=== PATIENT | female | born 1965 | race Caucasian/White ===

== ENCOUNTER 2017-04-08 08:15 | Emergency (ER) | payer MEDICAID ==
[~2017-04-08 08:15] MED LIST: COL100 PO; LIPI10 PO; MOTRIN800 MG PO
[2017-04-08] MEDS ORDERED: LOVAZA1 G1 PO (09:38)
[2017-04-08] MEDS ORDERED: VITAMIN B121000 MCG PO (09:38)
[2017-04-08] MEDS ORDERED: VITAMIN D400 UNIT PO (09:38)
[2017-04-08] MEDS ORDERED: ALENDRONATE SODI5 MG PO (09:39)
[2017-04-08 10:35] LABS: PLATELET COUNT 277 x10^3mcL (130-400)
[2017-04-08 10:36] LABS: BASOPHIL % 0 % (0-2)
[2017-04-08 10:58] LABS: CALCIUM 8.6 mg/dL (8.5-10.1); CARBON DIOXIDE 28.5 mmol/L (21-32); CHLORIDE SERUM 105 mmol/L (98-107); CREATININE SERUM 0.7 mg/dL (0.6-1.0); GFR1 > 60 mL/min; GLUCOSE SERUM 90 mg/dL (74-106); POTASSIUM SERUM 4.2 mmol/L (3.5-5.1); SODIUM SERUM 140 mmol/L (136-145)
[2017-04-08 11:02] LABS: ALBUMIN 3.5 g/dL (3.4-5.0); ALKALINE PHOSPHATASE 78 U/L (46-116); ALT/SGPT 23 U/L (14-59); AST/SGOT 19 U/L (15-37); BILIRUBIN TOTAL 0.4 mg/dL (0.20-1.00); HDL CHOLESTEROL 48 mg/dL (40-60); TOTAL PROTEIN, SERUM 8.2 g/dL (6.4-8.2); TRIGLYCERIDES 139 mg/dL (<150)
[2017-04-08 11:07] LABS: CHOLESTEROL 202 mg/dL (<200); CHOLESTEROL/HDL RATIO 4.2
[2017-04-08 16:27] VITALS: BP 103/56
== END 2017-04-08 16:27 | disposition home or self-care (01) ==
LOC: ED 08:15
PROVIDERS: Specialist
DX: K92.2 Gastrointestinal hemorrhage, unspecified (principal); N70.11 Chronic salpingitis; Z90.710 Acquired absence of both cervix and uterus; Z90.49 Acquired absence of other specified parts of digestive tract; Z87.19 Personal history of other diseases of the digestive system; Z98.890 Other specified postprocedural states
CPT/HCPCS: J3490; J7030; Q0092; Q9967

== ENCOUNTER 2018-02-07 12:13 | Emergency (ER) | payer MEDICAID ==
[~2018-02-07] VITALS: Ht 160 cm; Wt 68.5 kg
[~2018-02-07 12:13] MED LIST changes: +ALENDRONATE SODI5 MG PO; +LOVAZA1 G1 PO; +VITAMIN B121000 MCG PO; +VITAMIN D400 UNIT PO
[2018-02-07 12:47] VITALS: Ht 160 cm; Wt 68.5 kg
[2018-02-07 14:11] LABS: BASOPHIL % 0.7 % (0-2); PLATELET COUNT 262 x10^3mcL (130-400); RED CELL DISTRIBUTION WIDTH 13.2 % (11.5-14.5)
[2018-02-07 14:13] LABS: CALCIUM 8.4 mg/dL (8.5-10.1); CARBON DIOXIDE 29.3 mmol/L (21-32); CHLORIDE SERUM 107 mmol/L (98-107); CREATININE SERUM 0.6 mg/dL (0.6-1.0); GFR1 > 60 mL/min; GLUCOSE SERUM 87 mg/dL (74-106); POTASSIUM SERUM 4.3 mmol/L (3.5-5.1); SODIUM SERUM 142 mmol/L (136-145)
[2018-02-07 14:17] LABS: ALBUMIN 3.5 g/dL (3.4-5.0); ALKALINE PHOSPHATASE 77 U/L (46-116); ALT/SGPT 20 U/L (14-59); AMYLASE 69 U/L (25-115); AST/SGOT 18 U/L (15-37); BILIRUBIN TOTAL 0.3 mg/dL (0.20-1.00); LIPASE 134 IU/L (73-393); TOTAL PROTEIN, SERUM 7.6 g/dL (6.4-8.2)
[2018-02-07 15:42] VITALS: BP 129/86
== END 2018-02-07 15:42 | disposition home or self-care (01) ==
LOC: ED 12:13
PROVIDERS: Emergency Medicine
PROC: 3E023NZ Introduction of Analgesics, Hypnotics, Sedatives into Muscle, Percutaneous Approach (ICD-10-PCS; principal; 2018-02-07)
DX: R10.31 Right lower quadrant pain (principal); K46.9 Unspecified abdominal hernia without obstruction or gangrene
CPT/HCPCS: 36415; 83880; J1885

== ENCOUNTER 2018-10-01 14:13 | Emergency (ER) | payer MEDICAID ==
[~2018-10-01] VITALS: Ht 165.1 cm; Wt 72.1 kg
[2018-10-01 14:18] VITALS: Ht 165.1 cm; Wt 72.1 kg
[2018-10-01 16:04] VITALS: BP 122/87
== END 2018-10-01 16:04 | disposition home or self-care (01) ==
LOC: ED 14:13
DX: J98.01 Acute bronchospasm (principal); Z90.710 Acquired absence of both cervix and uterus; Z98.890 Other specified postprocedural states

== ENCOUNTER 2018-12-23 09:13 | Emergency (ER) | payer MEDICAID ==
[~2018-12-23] VITALS: Ht 154.9 cm; Wt 69.9 kg
[2018-12-23 09:22] VITALS: Ht 154.9 cm; Wt 69.9 kg
[2018-12-23 10:49] VITALS: BP 123/75
== END 2018-12-23 11:32 | disposition home or self-care (01) ==
LOC: ED 09:13
DX: R05 Cough (principal); Z90.710 Acquired absence of both cervix and uterus

== ENCOUNTER 2019-05-05 12:48 | Emergency (ER) | payer MEDICAID ==
[~2019-05-05] VITALS: Ht 162.6 cm; Wt 68.0 kg
[2019-05-05 12:59] VITALS: Ht 162.6 cm; Wt 68.0 kg
[2019-05-05 14:43] LABS: BASOPHIL % 0.8 % (0-2); PLATELET COUNT 314 x10^3mcL (130-400); RED CELL DISTRIBUTION WIDTH 12.9 % (11.5-14.5)
[2019-05-05 14:44] LABS: microscopic required? NO
[2019-05-05 14:48] LABS: UA SPECIFIC GRAVITY 1.015 (1.005-1.035); urine erythrocyte NEGATIVE (NEGATIVE)
[2019-05-05 14:49] LABS: CALCIUM 9.4 mg/dL (8.5-10.1); CARBON DIOXIDE 29.4 mmol/L (21-32); CHLORIDE SERUM 106 mmol/L (98-107); CREATININE SERUM 0.7 mg/dL (0.6-1.0); GFR1 > 60 mL/min; GLUCOSE SERUM 90 mg/dL (74-106); SODIUM SERUM 141 mmol/L (136-145)
[2019-05-05 14:54] LABS: ALBUMIN 3.8 g/dL (3.4-5.0); ALKALINE PHOSPHATASE 86 U/L (46-116); ALT/SGPT 23 U/L (14-59); AST/SGOT 14 U/L (15-37); BILIRUBIN TOTAL 0.3 mg/dL (0.20-1.00)
[2019-05-05 18:20] VITALS: BP 128/71
== END 2019-05-05 18:00 | disposition home or self-care (01) ==
LOC: ED 12:48
PROVIDERS: Emergency Medicine
DX: K64.9 Unspecified hemorrhoids (principal); K59.00 Constipation, unspecified; Z90.710 Acquired absence of both cervix and uterus; Z98.890 Other specified postprocedural states
CPT/HCPCS: 36415; Q9967